=== PATIENT | male | born 1970 | race African-American/Black ===

== ENCOUNTER 2018-09-20 11:05 | Emergency (ER) | payer SELFPAY ==
[2012-05-13 06:10] VITALS: BP 129/68
--- NOTE | 2018-09-20 11:32 | EDPHYS ---
Physician Documentation [facility] Name: Andrew Vargas Age: 47 yrs Sex: Male : 1970 Arrival Date: 09/20/2018 Time: 11:08 Bed 15 Private MD: ED Physician Josep Abad HPI: 09/20 11:17 This 47 yrs old Black Male presents to ER via Ambulatory with complaints of Back Pain. jmm 11:17 The patient presents with pain that is acute. Onset: The symptoms/episode jmm began/occurred gradually, 1 week(s) ago. The pain does not radiate. Associated signs and symptoms: Pertinent negatives: abdominal pain, dysuria, fever, hematuria, incontinence, numbness, tingling, urinary retention. This is a 47 year old male with a history of htn, that presents to the ED with left lower back pain worsened with movement beginning approx 1 week ago. Patient denies nause, vomiting, abdominal pain, fever, hematuria, numbness, urnary complaints, fecal incontinence.. Historical: - Allergies: 11:15 No Known Allergies; sg - PMHx: 11:15 Hypertension; sg - PSHx: 11:15 COLON RESECTION; sg - Immunization history:: Adult Immunizations not up to date. - Social history:: Smoking status: Patient uses tobacco products, denies chronic smoking, but will smoke occasionally. - Ebola Screening: : Patient negative for fever greater than or equal to 101.5 degrees Fahrenheit, and additional compatible Ebola Virus Disease symptoms Patient denies exposure to infectious person Patient denies travel to an Ebola-affected area in the 21 days before illness onset No symptoms or risks identified at this time. ROS: 11:17 Constitutional: Negative for fever, chills, and weight loss, Eyes: Negative for injury, jmm pain, redness, and discharge, Cardiovascular: Negative for chest pain, palpitations, and edema, Respiratory: Negative for shortness of breath, cough, wheezing, and pleuritic chest pain, Abdomen/GI: Negative for abdominal pain, nausea, vomiting, diarrhea, and constipation. 11:17 Back: Positive for pain with movement. 11:17 All other systems are negative. Exam: 11:17 Constitutional: This is a well developed, well nourished patient who is awake, alert, jmm and in no acute distress. Head/Face: atraumatic. Eyes: EOMI, no conjunctival erythema appreciated ENT: Moist Mucus Membranes Neck: Trachea midline, Supple Chest/axilla: Normal chest wall appearance and motion. Cardiovascular: Regular rate and rhythm. No edema appreciated Respiratory: Normal respirations, no respiratory distress appreciated Abdomen/GI: Non distended, soft 11:17 Back: pain, that is mild, of the left low back, ROM is painful, CVA tenderness, is absent, vertebral tenderness, is not appreciated, muscle spasm, is appreciated in the left low back. 11:17 Musculoskeletal/extremity: ROM: intact in all extremities. 11:17 Skin: Appearance: Color: normal in color. 11:17 Neuro: Orientation: is normal, Mentation: is normal, Memory: is normal, Gait: is steady. 11:17 Psych: Behavior/mood is pleasant, cooperative. Vital Signs: 11:14 BP 146 / 92; Pulse 78; Resp 17; Temp 97.8; Pulse Ox 100% on R/A; Weight 81.65 kg (R); sg Height 5 ft. 9 in. (175.26 cm); Pain 4/10; 11:51 BP 127 / 83; Pulse 74; Resp 16; Pulse Ox 97% on R/A; rb1 11:14 Body Mass Index 26.58 (81.65 kg, 175.26 cm) sg MDM: 11:16 Patient medically screened. [facility] 11:28 Differential diagnosis: muscle spasm, lumbar sprain, calculus of ureter. Data reviewed: [facility] vital signs, nurses notes. Counseling: I had a detailed discussion with the patient and/or guardian regarding: the historical points, exam findings, and any diagnostic results supporting the discharge/admit diagnosis. Counseling: I had a detailed discussion with the patient and/or guardian regarding: lab results, the need for outpatient follow up, to return to the emergency department if symptoms worsen or persist or if there are any questions or concerns that arise at home. ED course: Patient's UA negative. Symptoms appear musculoskeletal. Patient is alert and non toxic in appearance in the ED. Neuro exam normal. I do not suspect cord compression. Patient is advised to follow up with PCP or return to the ED if symptoms worsen. . 09/20 11:29 Order name: Urine Dipstick--Ancillary (enter results); Complete Time: 21:42 eb 09/20 11:17 Order name: Urine Dipstick-Ancillary (obtain specimen); Complete Time: 11:31 patrick Administered Medications: No medications were administered Disposition: 15:14 Co-signature as Attending Physician, Josep Abad MD. rn Disposition: 09/20/18 11:32 Discharged to Home. Impression: Muscle spasm of back. - Condition is Stable. - Discharge Instructions: Muscle Cramps and Spasms, Back Injury Prevention, [id number]. - Prescriptions for Ibuprofen 800 mg Oral Tablet - take 1 tablet by ORAL route every 12 hours As needed take with food; 20 tablet. orphenadrine citrate 100 mg Oral Tablet Sustained Release - take 1 tablet by ORAL route 2 times per day As needed; 20 tablet. - Medication Reconciliation Form, Thank You Letter, Antibiotic Education, Prescription Opioid Use, Work release form form. - Follow up: Private Physician; When: 2 - 3 days; Reason: Recheck today's complaints, Continuance of care, Re-evaluation by your physician. Signatures: Dispatcher [employer] EDAshok Leyva RN RN Ba Demarco PA PA jmm Nieto, Roman, MD MD rn Barber, Rebecca, RN RN rb1 Corrections: (The following items were deleted from the chart) 11:54 11:32 09/20/2018 11:32 Discharged to Home. Impression: Muscle spasm of back. Condition rb1 is Stable. Forms are Medication Reconciliation Form, Thank You Letter, Antibiotic Education, Prescription Opioid Use. Follow up: Private Physician; When: 2 - 3 days; Reason: Recheck today's complaints, Continuance of care, Re-evaluation by your physician. patrick
--- NOTE | 2018-09-20 11:32 | ER ---
Nurse's Notes [facility] Name: Andrew Vargas Age: 47 yrs Sex: Male : 1970 Arrival Date: 09/20/2018 Time: 11:08 Bed 15 Private MD: Diagnosis: Muscle spasm of back Presentation: 09/20 11:13 Presenting complaint: Patient states: L sided low back pain that started about a week sg ago, denies N/V/D/Fever, denies any urinary problems at this time. Transition of care: patient was not received from another setting of care. Onset of symptoms was September 20, 2018. Risk Assessment: Do you want to hurt yourself or someone else? Patient reports no desire to harm self or others. Initial Sepsis Screen: Does the patient meet any 2 criteria? No. Patient's initial sepsis screen is negative. Does the patient have a suspected source of infection? No. Patient's initial sepsis screen is negative. Care prior to arrival: None. 11:13 Method Of Arrival: Ambulatory sg 11:13 Acuity: NIKITA 4 sg Historical: - Allergies: 11:15 No Known Allergies; sg - PMHx: 11:15 Hypertension; sg - PSHx: 11:15 COLON RESECTION; sg - Immunization history:: Adult Immunizations not up to date. - Social history:: Smoking status: Patient uses tobacco products, denies chronic smoking, but will smoke occasionally. - Ebola Screening: : Patient negative for fever greater than or equal to 101.5 degrees Fahrenheit, and additional compatible Ebola Virus Disease symptoms Patient denies exposure to infectious person Patient denies travel to an Ebola-affected area in the 21 days before illness onset No symptoms or risks identified at this time. Screenin:10 Abuse screen: Denies threats or abuse. Nutritional screening: No deficits noted. rb1 Tuberculosis screening: No symptoms or risk factors identified. Fall Risk None identified. Assessment: 11:10 General: Appears in no apparent distress. comfortable, Behavior is calm, cooperative. rb1 Pain: Complains of pain in left low back Pain radiates to right low back Pain currently is 8 out of 10 on a pain scale. Pain began about a week ago. Neuro: Level of Consciousness is awake, alert, obeys commands, Oriented to person, place, time, situation. Cardiovascular: Capillary refill < 3 seconds is brisk in bilateral fingers. Respiratory: Airway is patent Respiratory effort is even, unlabored, Respiratory pattern is regular, symmetrical. GI: No signs and/or symptoms were reported involving the gastrointestinal system. : No signs and/or symptoms were reported regarding the genitourinary system. Derm: Skin is dry, Skin is normal, Skin temperature is warm. Musculoskeletal: Range of motion: intact in all extremities. 11:37 Reassessment: Pt. would like to speak with the provider before being discharged. rb1 11:51 Reassessment: Patient appears in no apparent distress at this time. No changes from rb1 previously documented assessment. Vital Signs: 11:14 BP 146 / 92; Pulse 78; Resp 17; Temp 97.8; Pulse Ox 100% on R/A; Weight 81.65 kg (R); sg Height 5 ft. 9 in. (175.26 cm); Pain 4/10; 11:51 BP 127 / 83; Pulse 74; Resp 16; Pulse Ox 97% on R/A; rb1 11:14 Body Mass Index 26.58 (81.65 kg, 175.26 cm) ED Course: 11:08 Patient arrived in ED. as 11:09 Ba Guerrier PA is PHCP. [facility] 11:09 Josep Abad MD is Attending Physician. [facility] 11:10 Patient has correct armband on for positive identification. Bed in low position. Call rb1 light in reach. Side rails up X 1. Pulse ox on. NIBP on. 11:11 Sandra Schmitt, RN is Primary Nurse. rb1 11:14 Triage completed. sg 11:15 Arm band placed on. sg 11:53 No provider procedures requiring assistance completed. Patient did not have IV access rb1 during this emergency room visit. Administered Medications: No medications were administered Outcome: 11:32 Discharge ordered by . [facility] 11:53 Discharged to home ambulatory. rb1 11:53 Condition: stable 11:53 Discharge instructions given to patient, Instructed on discharge instructions, follow up and referral plans. medication usage, Demonstrated understanding of instructions, follow-up care, medications, Prescriptions given X 2. 11:54 Patient left the ED. rb1 Signatures: Ashok Dhillon, RN RN Ba Guerrier PA PA Viri Giraldo as Sandra Schmitt, RN RN [facility]
[2018-09-20 11:52] LABS: Urine Blood NEGATIVE (NEG); Urine Glucose NEGATIVE (NEG); Urine Protein NEGATIVE (NEG)
== END 2018-09-20 11:54 | disposition home or self-care (01) ==
LOC: ER 11:05
DX: M62.830 Muscle spasm of back (principal); I10 Essential (primary) hypertension; Z72.0 Tobacco use
CPT/HCPCS: 81003; 99283

== ENCOUNTER 2018-10-16 17:36 | Day surgery (SDC) | payer SELFPAY ==
[2018-10-16] MEDS ORDERED: TETANUS & DIPHTHERIA TOX,ADULT 0.5 ML VIAL ONE (18:17)
[2018-10-16] MEDS ORDERED: LIDOCAINE 1% MPF 5 ML VIAL ONE (18:20)
[2018-10-16] MEDS ORDERED: BUPIVACAINE 0.5% PF 10 ML VIAL ONE (18:20)
--- NOTE | 2018-10-16 18:44 | RAD REPORT ---
EXAM DESCRIPTION: RAD - Forearm Right - 10/16/2018 6:36 pm CLINICAL HISTORY: laceration COMPARISON: No comparisons FINDINGS: Soft tissue laceration is present involving the forearm. No fracture or radiopaque foreign body.
--- NOTE | 2018-10-16 21:23 | ER ---
Nurse's Notes [facility] Name: Andrew Vargas Age: 47 yrs Sex: Male : 1970 Arrival Date: 10/16/2018 Time: 17:38 Bed 20 Private MD: Diagnosis: Puncture wound without foreign body of right forearm;Compartment syndrome, unspecified Presentation: 10/16 17:39 Presenting complaint: EMS states: pt was washing dishes when he accidentally slipped hj and fell and a kitchen knife lacerated his R forearm; PD able to provide tourniquet on R upper arm at 1710, EMS came and provided dressing on R forearm; unknown if arterial or venous;. Transition of care: patient was not received from another setting of care. Complicating Factors: There are no complicating factors for this patient. Onset of symptoms was October 16, 2018. Risk Assessment: Do you want to hurt yourself or someone else? Patient reports no desire to harm self or others. Initial Sepsis Screen: Does the patient meet any 2 criteria? No. Patient's initial sepsis screen is negative. Does the patient have a suspected source of infection? No. Patient's initial sepsis screen is negative. Care prior to arrival: None. 17:39 Method Of Arrival: EMS: [facility] 17:39 Acuity: NIKITA 4 hj Triage Assessment: 17:44 General: Appears in no apparent distress. uncomfortable, Behavior is cooperative, hj appropriate for age, anxious. Pain: Complains of pain in right arm. Injury Description: Laceration sustained to right arm. Historical: - Allergies: 17:43 No Known Allergies; hj - Home Meds: 17:43 None [Active]; hj - PMHx: 17:43 Hypertension; hj - PSHx: 17:43 None; hj - Immunization history:: Adult Immunizations unknown. - Social history:: Smoking status: Patient uses tobacco products, Patient/guardian denies using alcohol, Patient uses coccaine. - Ebola Screening: : Patient negative for fever greater than or equal to 101.5 degrees Fahrenheit, and additional compatible Ebola Virus Disease symptoms Patient denies exposure to infectious person Patient denies travel to an Ebola-affected area in the 21 days before illness onset. Screenin:44 Abuse screen: Denies threats or abuse. Denies injuries from another. Nutritional hj screening: No deficits noted. Tuberculosis screening: No symptoms or risk factors identified. Fall Risk None identified. Assessment: 17:44 Musculoskeletal: No signs and/or symptoms reported regarding the musculoskeletal hj system. Injury Description: Laceration sustained to right arm is 2.6 to 7.5 cm long. 19:15 Reassessment: Patient appears in no apparent distress at this time. Patient and/or cc3 family updated on plan of care and expected duration. Pain level reassessed. Patient is alert, oriented x 3, equal unlabored respirations, skin warm/dry/pink. Received this male patient from morning shift BRUNILDA Daniel as a case of laceration to right forearm. With IV cannula gauge 18 at the left ACV saline locked. 20:20 Reassessment: Patient appears in no apparent distress at this time. Patient and/or cc3 family updated on plan of care and expected duration. Pain level reassessed. Patient is alert, oriented x 3, equal unlabored respirations, skin warm/dry/pink. 21:15 Reassessment: Patient appears in no apparent distress at this time. Patient and/or cc3 family updated on plan of care and expected duration. Pain level reassessed. Patient is alert, oriented x 3, equal unlabored respirations, skin warm/dry/pink. Ortho Dr. Morrissey assessing the patient at bedside. Patient for admission to OR. 22:10 Reassessment: Patient appears in no apparent distress at this time. Patient and/or cc3 family updated on plan of care and expected duration. Pain level reassessed. Patient is alert, oriented x 3, equal unlabored respirations, skin warm/dry/pink. ROVING TESTER LABORATORYBRUNILDA Ellis came and report given to her for continuity of care. Patient left ER for OR admission vitally stable by wheelchair escorted by BRUNILDA Ellis. Vital Signs: 17:45 BP 147 / 94; Pulse 73; Resp 18; Temp 98.2(O); Pulse Ox 100% on R/A; Weight 83.91 kg; hj Height 5 ft. 9 in. (175.26 cm); Pain 8/10; 19:30 BP 149 / 93; Pulse 65; Resp 18 S; Temp 98.2(O); Pulse Ox 100% on R/A; cc3 20:15 BP 155 / 85; Pulse 63; Resp 17 S; Pulse Ox 100% on R/A; cc3 21:39 BP 152 / 87; Pulse 64; Resp 16 S; Pulse Ox 100% on R/A; cc3 22:00 BP 157 / 90; Pulse 61; Resp 18 S; Pulse Ox 100% on R/A; cc3 17:45 Body Mass Index 27.32 (83.91 kg, 175.26 cm) ED Course: 17:38 Patient arrived in ED. hj 17:41 Ion Eckert NP is PHCP. pm1 17:41 Abebe Dodson MD is Attending Physician. pm1 17:42 Triage completed. hj 17:44 Arm band placed on right wrist. hj 17:45 Patient has correct armband on for positive identification. Bed in low position. Call hj light in reach. Side rails up X 1. 17:48 Fredy Isidro RN is Primary Nurse. hj 18:36 Forearm Right XRAY In Process Unspecified. EDMS 21:29 Checo Morrissey MD is Hospitalizing Provider. pm1 22:10 No provider procedures requiring assistance completed. Patient admitted, IV remains in cc3 place. Administered Medications: 18:47 Drug: Tetanus-Diphtheria Toxoid Adult 0.5 ml {Senior Medical Writer: [employer]. Exp: pc1 09/13/2020. Lot #: [id number]. } Route: IM; Site: left deltoid; 18:52 Follow up: Response: No adverse reaction hj 18:53 Drug: Lidocaine (1 %) 5 ml Volume: 5 ml; Route: Infiltration; hj 18:53 Drug: Bupivacaine (0.5 %) 10 ml Volume: 10 ml; Route: Infiltration; hj 21:45 Drug: Ancef 1 grams Route: IVPB; Site: left antecubital; cc3 22:10 Follow up: Response: No adverse reaction; IV Status: Completed infusion; IV Intake: [id number] Intake: 22:10 IV: 50ml; Total: 50ml. cc3 Outcome: 21:22 ER care complete, transfer ordered by . pm1 21:30 Decision to Hospitalize by Provider. pm1 22:10 Admitted to OR accompanied by nurse, via stretcher, with chart, Report called to OR cc3 nurse Ellis 22:10 Condition: stable 22:10 Instructed on the need for admit, Demonstrated understanding of instructions. 22:11 Patient left the ED. cc3 Signatures: Dispatcher [employer] Fredy Angelo, RN RN hj Ion Eckert, [employer] C[employer] T[employer] pm1 Marjorie Blackburn cc3 Ion Noble pc1
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
[2018-10-16] MEDS ORDERED: CEFAZOLIN SODIUM 1 GM/VIAL ONE (21:40)
[2018-10-16] MEDS ORDERED: NA CHLORIDE 0.9% 50 ML IV ONE (21:40)
[2018-10-16 21:42] LABS: Absolute Lymphocytes (CBC) 2.3 K/uL (0.7-4.9); Absolute Monocytes 0.9 K/uL (0.1-1.3); Absolute Neutrophil 4.9 K/uL (1.8-8.0); Basophils % 0.6 % (0-1.3); Eosinophils % 0.7 % (0-4.4); Lymphocytes % 28.3 % (15.3-44.8); Monocytes % 10.6 % (3.3-12.3); RBC Red Blood Cell Count 4.82 M/uL (4.33-5.43)
[2018-10-16 22:07] LABS: BUN Blood Urea Nitrogen 11 mg/dL (7-18); Bicarbonate 23 mmol/L (21-32); Glucose Level 76 mg/dL (74-106); Potassium 4.2 mmol/L (3.5-5.1); Sodium Level 139 mmol/L (136-145)
[2018-10-16] MEDS ORDERED: Ringers Lactate 1,000 ML IV ONE ×2 (22:23→23:47)
[2018-10-16] MEDS ORDERED: SUCCINYLCHOLINE 20 MG/ML (10 ML) IV ONE (22:35)
[2018-10-16] MEDS ORDERED: PROPOFOL 200 MG/20 ML VIAL IV ONE (22:40)
[2018-10-16] MEDS ORDERED: MIDAZOLAM HCL 2 MG/2 ML INJ ONE (22:40)
[2018-10-16] MEDS ORDERED: FENTANYL CITR 250 MCG/5 ML ONE (22:40)
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
[2018-10-17 00:26] VITALS: O2SAT 100
[2018-10-17 00:44] VITALS: BP 159/86; TEMP 97.7
[2018-10-17] MEDS ORDERED: MEPERIDINE HCL 25 MG/0.5 ML ONE (00:53)
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
== END 2018-10-17 00:58 | disposition short-term general hospital (02) ==
LOC: ER 17:36 → OR 22:11 → UNDOADMOB 22:33 → 2ND 22:33 → OR 10-17 00:58
PROVIDERS: ATTEND Orthopaedic Surgery
PROC: 0KN90ZZ Release Right Lower Arm and Wrist Muscle, Open Approach (ICD-10-PCS; principal; 2018-10-17)
PROC: 01D Peripheral Nervous System, Extraction (ICD-10-PCS; 2018-10-17)
DX: T79.A11A Traumatic compartment syndrome of right upper extremity, initial encounter (principal); S55.011A Laceration of ulnar artery at forearm level, right arm, initial encounter; S56.221A Laceration of other flexor muscle, fascia and tendon at forearm level, right arm, initial encounter; W26.0XXA Contact with knife, initial encounter; I10 Essential (primary) hypertension; Z23 Encounter for immunization; F17.200 Nicotine dependence, unspecified, uncomplicated
CPT/HCPCS: 36415; 80048; 85025; 86850; 86900; 86901; 90714; 96365; 99285; J0330; J0690; J2175; J2250; J2704; J3010

== ENCOUNTER 2018-10-27 13:04 | Emergency (ER) | payer SELFPAY ==
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
[2018-10-27] MEDS ORDERED: CLINDAMYCIN HCL 150 MG CAP ONE (14:53)
[2018-10-27 16:34] VITALS: TEMP 97.7
[2018-10-27 16:36] VITALS: BP 147/82; O2SAT 99
== END 2018-10-27 15:02 | disposition home or self-care (01) ==
LOC: ER 13:04
DX: R22.31 Localized swelling, mass and lump, right upper limb (principal); I10 Essential (primary) hypertension; F17.210 Nicotine dependence, cigarettes, uncomplicated
CPT/HCPCS: 99283

== ENCOUNTER 2019-10-20 16:53 | Emergency (ER) | payer SELFPAY ==
[2019-10-20] MEDS ORDERED: KETOROLAC 30 MG/ML INJ ONE (17:43)
[2019-10-20 18:05] LABS: Basophils % 0.9 % (0-1.3); MPV 8.1 fL (7.6-11.3); RBC Red Blood Cell Count 4.81 M/uL (4.33-5.43)
[2019-10-20 18:29] LABS: ALT/SGPT 24 U/L (12-78); AST/SGOT 18 U/L (15-37); Albumin 3.1 g/dL (3.4-5.0); Alkaline Phosphatase 100 U/L (45-117); BUN Blood Urea Nitrogen 11 mg/dL (7-18); Bicarbonate 26 mmol/L (21-32); Bilirubin Direct < 0.1 mg/dL (0-0.2); Bilirubin Total 0.2 mg/dL (0.2-1.0); Glucose Level 170 mg/dL (74-106); Lipase 235 U/L (73-393); Potassium 3.8 mmol/L (3.5-5.1); Sodium Level 141 mmol/L (136-145)
[2019-10-20] MEDS ORDERED: MEPERIDINE HCL 25 MG/ML SYR ONE (20:15)
[2019-10-20 23:00] LABS: Urine Blood NEGATIVE (NEG); Urine Glucose NEGATIVE (NEG); Urine Protein NEGATIVE (NEG); Urine pH 5.5 (5.0-7.0)
--- NOTE | 2019-10-20 23:34 | EDPHYS ---
Physician Documentation [facility] Name: Andrew Vargas Age: 49 yrs Sex: Male : 1970 Arrival Date: 10/20/2019 Time: 16:55 Bed 26 Private MD: ED Physician Josep Abad HPI: 10/20 17:28 This 49 yrs old Black Male presents to ER via Ambulatory with complaints of Low Back kdr Pain, Flank Pain. 17:28 The patient presents with pain that is acute, with no known mechanism of injury. kdr 17:28 The patient presents with abdominal pain right lower quadrant. Onset: The kdr symptoms/episode began/occurred gradually, Saturday. The symptoms do not radiate. Associated signs and symptoms: none. The symptoms are described as achy, dull, vague. Modifying factors: The symptoms are alleviated by Laying on his left side at a 45 degree angle. the symptoms are aggravated by movement, walking. Severity of pain: At its worst the pain was mild moderate just prior to arrival, in the emergency department the pain is unchanged. The patient has not experienced similar symptoms in the past. The patient has not recently seen a physician. The patient has dull, achy annoying pain with movement and then no pain in certain recumbent positions. Historical: - Allergies: 17:05 No Known Allergies; sv - PMHx: 17:05 Hypertension; sv - PSHx: 17:05 None; sv - Immunization history:: Adult Immunizations up to date. - Coronavirus screen:: The patient has NOT traveled to [place] in the past 14 days. Proceed with normal triage process as indicated. The patient has NOT had contact with known/suspected case of Coronavirus? Proceed with normal triage procedures. - Social history:: Smoking status: Patient reports the use of cigarette tobacco products, smokes one-half pack cigarettes per day. - Ebola Screening: : No symptoms or risks identified at this time. ROS: 17:28 Constitutional: Negative for fever, chills, and weight loss, Eyes: Negative for injury, kdr pain, redness, and discharge, ENT: Negative for injury, pain, and discharge, Neck: Negative for injury, pain, and swelling, Cardiovascular: Negative for chest pain, palpitations, and edema, Respiratory: Negative for shortness of breath, cough, wheezing, and pleuritic chest pain, Back: Negative for injury and pain, : Negative for injury, bleeding, discharge, and swelling, MS/Extremity: Negative for injury and deformity, Skin: Negative for injury, rash, and discoloration, Neuro: Negative for headache, weakness, numbness, tingling, and seizure activity. Psych: Negative for depression, anxiety, suicide ideation, homicidal ideation, and hallucinations, Allergy/Immunology: Negative for hives, rash, and allergies, Endocrine: Negative for neck swelling, polydipsia, polyuria, polyphagia, and marked weight changes, Hematologic/Lymphatic: Negative for swollen nodes, abnormal bleeding, and unusual bruising. 17:28 Abdomen/GI: Positive for abdominal pain, Negative for nausea, vomiting, and diarrhea, abdominal cramps, abdominal distension, anorexia, black/tarry stool, rectal pain, rectal bleeding. Exam: 17:28 Constitutional: This is a well developed, well nourished patient who is awake, alert, kdr and in no acute distress. Head/Face: Normocephalic, atraumatic. Eyes: Pupils equal round and reactive to light, extra-ocular motions intact. Lids and lashes normal. Conjunctiva and sclera are non-icteric and not injected. Cornea within normal limits. Periorbital areas with no swelling, redness, or edema. Neck: Trachea midline, no thyromegaly or masses palpated, and no cervical lymphadenopathy. Supple, full range of motion without nuchal rigidity, or vertebral point tenderness. No Meningismus. Chest/axilla: Normal chest wall appearance and motion. Nontender with no deformity. No lesions are appreciated. Cardiovascular: Regular rate and rhythm with a normal S1 and S2. No gallops, murmurs, or rubs. Normal PMI, no JVD. No pulse deficits. Respiratory: Lungs have equal breath sounds bilaterally, clear to auscultation and percussion. No rales, rhonchi or wheezes noted. No increased work of breathing, no retractions or nasal flaring. Back: No spinal tenderness. No costovertebral tenderness. Full range of motion. Skin: Warm, dry with normal turgor. Normal color with no rashes, no lesions, and no evidence of cellulitis. MS/ Extremity: Pulses equal, no cyanosis. Neurovascular intact. Full, normal range of motion. Neuro: Awake and alert, GCS 15, oriented to person, place, time, and situation. Cranial nerves II-XII grossly intact. Motor strength 5/5 in all extremities. Sensory grossly intact. Cerebellar exam normal. Normal gait. Psych: Awake, alert, with orientation to person, place and time. Behavior, mood, and affect are within normal limits. 17:28 Abdomen/GI: Inspection: abdomen appears normal, Bowel sounds: normal, Palpation: abdomen is soft and non-tender, soft, in the anterior aspect of right lateral abdomen and posterior aspect of right lateral abdomen, mass, is not appreciated, rebound tenderness, is not appreciated. Vital Signs: 17:06 BP 129 / 86; Pulse 92; Resp 18; Temp 98.8; Pulse Ox 97% ; Weight 83.91 kg; Height 5 ft. sv 9 in. (175.26 cm); Pain 8/10; 18:00 BP 117 / 71; Pulse 74; Resp 15 S; Pulse Ox 99% on R/A; ca1 19:12 BP 112 / 68; Pulse 67; Resp 18 S; Pulse Ox 99% ; ca1 20:13 BP 112 / 73; Pulse 61; Resp 14 S; Pulse Ox 100% on R/A; ca1 17:06 Body Mass Index 27.32 (83.91 kg, 175.26 cm) sv MDM: 19:08 Patient medically screened. rn 19:58 Differential diagnosis: Ureterolithiasis, urinary tract infection, back strain, muscle rn spasm, radiculopathy. Data reviewed: vital signs, nurses notes. Counseling: I had a detailed discussion with the patient and/or guardian regarding: the historical points, exam findings, and any diagnostic results supporting the discharge/admit diagnosis, the need for outpatient follow up, to return to the emergency department if symptoms worsen or persist or if there are any questions or concerns that arise at home. Response to treatment: the patient's symptoms have mildly improved after treatment, and as a result, I will discharge patient. ED course: Most likely muscle spasm, radiculopathy, strain given absence of injury, no abd pain, no urinary symptoms, no fever. Urine neg for acute findings. . 10/20 17:22 Order name: Basic Metabolic Panel [facility] 10/20 17:22 Order name: CBC with Diff [facility] 10/20 17:22 Order name: Creatinine for Radiology [facility] 10/20 16: Order name: Hepatic Function [facility] 10/20 17:22 Order name: Lipase [facility] 10/20 17:28 Order name: Urine Dipstick--Ancillary (enter results) 10/20 17:22 Order name: IV Saline Lock; Complete Time: 17:46 [facility] 10/20 17:22 Order name: Labs collected and sent; Complete Time: 17:46 [facility] 10/20 17:22 Order name: Urine Dipstick-Ancillary (obtain specimen); Complete Time: 17:25 [facility] Administered Medications: 17:46 Drug: TORadol - Ketorolac 15 mg Route: IVP; Site: left antecubital; ca1 19:30 Follow up: Response: No adverse reaction; Pain is decreased ca1 20:12 Drug: Demerol 25 mg {Note: RASS - 0.} Route: IVP; Site: left antecubital; ca1 20:34 Follow up: Response: No adverse reaction; Pain is decreased; RASS: Alert and Calm (0) ca1 Disposition: 10/20/19 20:16 Discharged to Home. Impression: Muscle spasm of back. - Condition is Stable. - Discharge Instructions: Muscle Cramps and Spasms, Back Injury Prevention, [id number], Back Exercises, [id number]. - Prescriptions for Cyclobenzaprine 10 mg Oral Tablet - take 1 tablet by ORAL route every 8 hours As needed; 20 tablet. Tramadol 50 mg Oral Tablet - take 1 tablet by ORAL route every 8 hours as needed; 20 tablet. Medrol (Vidal) 4 mg Oral Tablets, Dose Pack - take 1 tablet by ORAL route as directed - follow package instructions; 1 packet. - Medication Reconciliation Form, Thank You Letter, Antibiotic Education, Prescription Opioid Use form. - Follow up: Private Physician; When: As needed; Reason: Recheck today's complaints, Re-evaluation by your physician. - Problem is new. - Symptoms have improved. Signatures: Dispatcher [employer] Rhonda Avendaño RN RN sv Rittger, Kevin, MD MD kdr Nieto, Roman, MD MD rn Aclubna, BRUNILDA Gonzalez RN ca1 Corrections: (The following items were deleted from the chart) 20:35 20:16 10/20/2019 20:16 Discharged to Home. Impression: Muscle spasm of back. Condition ca1 is Stable. Forms are Medication Reconciliation Form, Thank You Letter, Antibiotic Education, Prescription Opioid Use. Follow up: Private Physician; When: As needed; Reason: Recheck today's complaints, Re-evaluation by your physician. Problem is new. Symptoms have improved. rn
--- NOTE | 2019-10-20 23:34 | ER ---
Nurse's Notes [facility] Name: Andrew Vargas Age: 49 yrs Sex: Male : 1970 Arrival Date: 10/20/2019 Time: 16:55 Bed 26 Private MD: Diagnosis: Muscle spasm of back Presentation: 10/20 17:04 Presenting complaint: Patient states: right flank pain x 2 days. Denies urinary sv symptoms. Transition of care: patient was not received from another setting of care. Onset of symptoms was October 18, 2019. Care prior to arrival: None. 17:04 Method Of Arrival: Ambulatory sv 17:04 Acuity: NIKITA 3 sv 17:15 Risk Assessment: Do you want to hurt yourself or someone else? Patient reports no ca1 desire to harm self or others. Initial Sepsis Screen: Does the patient meet any 2 criteria? No. Patient's initial sepsis screen is negative. Does the patient have a suspected source of infection? No. Patient's initial sepsis screen is negative. Triage Assessment: 17:06 General: Appears in no apparent distress. uncomfortable, Behavior is calm, cooperative, sv appropriate for age. Pain: Complains of pain in right low back. Neuro: Level of Consciousness is awake, alert, obeys commands, Gait is steady. Historical: - Allergies: 17:05 No Known Allergies; sv - PMHx: 17:05 Hypertension; sv - PSHx: 17:05 None; sv - Immunization history:: Adult Immunizations up to date. - Coronavirus screen:: The patient has NOT traveled to [place] in the past 14 days. Proceed with normal triage process as indicated. The patient has NOT had contact with known/suspected case of Coronavirus? Proceed with normal triage procedures. - Social history:: Smoking status: Patient reports the use of cigarette tobacco products, smokes one-half pack cigarettes per day. - Ebola Screening: : No symptoms or risks identified at this time. Screenin:15 Abuse screen: Denies threats or abuse. Denies injuries from another. Nutritional ca1 screening: No deficits noted. Tuberculosis screening: No symptoms or risk factors identified. Fall Risk IV access (20 points). Assessment: 17:15 General: Appears in no apparent distress. uncomfortable, Behavior is calm, cooperative, ca1 appropriate for age. Pain: Complains of pain in right low back Pain does not radiate. Pain currently is 8 out of 10 on a pain scale. Quality of pain is described as sharp, Pain began 2-3 days ago. Is intermittent, Aggravated by repositioning. Neuro: Level of Consciousness is awake, alert, obeys commands, Oriented to person, place, time, situation, Appropriate for age. Cardiovascular: Heart tones S1 S2 present Capillary refill < 3 seconds Patient's skin is warm and dry. Respiratory: Airway is patent Respiratory effort is even, unlabored, Respiratory pattern is regular, symmetrical, Breath sounds are clear bilaterally. GI: Abdomen is round non-distended, Bowel sounds present X 4 quads. Abd is soft and non tender X 4 quads. : Urine is clear, Denies burning with urination, urinary frequency, urgency. EENT: No deficits noted. No signs and/or symptoms were reported regarding the EENT system. Derm: Skin is intact, is healthy with good turgor, Skin is pink, warm \T\ dry. Musculoskeletal: Circulation, motion, and sensation intact. Capillary refill < 3 seconds, Range of motion: intact in all extremities. 18:14 Reassessment: Patient appears in no apparent distress at this time. Patient and/or ca1 family updated on plan of care and expected duration. Pain level reassessed. Patient is alert, oriented x 3, equal unlabored respirations, skin warm/dry/pink. 19:12 Reassessment: Patient appears in no apparent distress at this time. Patient and/or ca1 family updated on plan of care and expected duration. Pain level reassessed. Patient is alert, oriented x 3, equal unlabored respirations, skin warm/dry/pink. 20:13 Reassessment: Patient appears in no apparent distress at this time. Patient and/or ca1 family updated on plan of care and expected duration. Pain level reassessed. Patient is alert, oriented x 3, equal unlabored respirations, skin warm/dry/pink. Vital Signs: 17:06 BP 129 / 86; Pulse 92; Resp 18; Temp 98.8; Pulse Ox 97% ; Weight 83.91 kg; Height 5 ft. sv 9 in. (175.26 cm); Pain 8/10; 18:00 BP 117 / 71; Pulse 74; Resp 15 S; Pulse Ox 99% on R/A; ca1 19:12 BP 112 / 68; Pulse 67; Resp 18 S; Pulse Ox 99% ; ca1 20:13 BP 112 / 73; Pulse 61; Resp 14 S; Pulse Ox 100% on R/A; ca1 17:06 Body Mass Index 27.32 (83.91 kg, 175.26 cm) sv ED Course: 16:55 Patient arrived in ED. as 17:04 Arm band placed on. sv 17:05 Triage completed. sv 17:10 Lisa Venegas, RN is Primary Nurse. ca1 17:15 Patient has correct armband on for positive identification. Placed in gown. Bed in low ca1 position. Call light in reach. Side rails up X 1. Pulse ox on. NIBP on. Warm blanket given. 17:15 Urine collected: clean catch specimen, clear, Amount Voided: 70mL. ca1 17:21 Michoacano Mancini MD is Attending Physician. kdr 17:40 No provider procedures requiring assistance completed. Initial lab(s) drawn, by mi, ca1 sent to lab. Inserted saline lock: 20 gauge in left antecubital area, using aseptic technique. Blood collected. 19:08 Attending Physician role handed off by Michoacano Mancini MD rn 19:08 Josep Abad MD is Attending Physician. rn 20:34 IV discontinued, intact, bleeding controlled, No redness/swelling at site. Pressure ca1 dressing applied. Administered Medications: 17:46 Drug: TORadol - Ketorolac 15 mg Route: IVP; Site: left antecubital; ca1 19:30 Follow up: Response: No adverse reaction; Pain is decreased ca1 20:12 Drug: Demerol 25 mg {Note: RASS - 0.} Route: IVP; Site: left antecubital; ca1 20:34 Follow up: Response: No adverse reaction; Pain is decreased; RASS: Alert and Calm (0) ca1 Outcome: 20:16 Discharge ordered by . rn 20:35 Discharged to home ambulatory, with friend. ca1 20:35 Condition: stable 20:35 Discharge instructions given to patient, Instructed on discharge instructions, follow up and referral plans. no drinking with medication, no driving heavy equipment, medication usage, Demonstrated understanding of instructions, follow-up care, medications, Prescriptions given X 3. 20:35 Patient left the ED. ca1 Signatures: Rhonda Mccarthy RN RN Michoacano Mancini MD MD kdr Martinez, Amelia as Nieto Josep, MD MD rn Acob, BRUNILDA Gonzalez RN ca1 Corrections: (The following items were deleted from the chart) 17:06 17:06 Pulse 92bpm; Resp 18bpm; Pulse Ox 97%; Temp 98.8F; 83.91 kg; Height 5 ft. 9 in.; sv BMI: 27.3; Pain 8/10; sv 19:30 19:12 BP 132 / 68; Pulse 107bpm; Resp 18bpm; Spontaneous; Pulse Ox 99%; ca1 ca1
[2019-10-21 01:27] VITALS: BP 129/86; TEMP 98.8; O2SAT 97
== END 2019-10-20 20:35 | disposition home or self-care (01) ==
LOC: ER 16:53
DX: M62.830 Muscle spasm of back (principal); I10 Essential (primary) hypertension; F17.210 Nicotine dependence, cigarettes, uncomplicated
CPT/HCPCS: 36415; 80048; 80076; 81003; 83690; 85025; 96374; 96375; 99284; J2175

== ENCOUNTER 2022-02-05 09:22 | Emergency (ER) | payer SELFPAY ==
[2022-02-05 10:09] LABS: Urine Blood Negative (Negative); Urine Glucose Negative (Negative); Urine Protein Negative (Negative); Urine Specific Gravity >=1.030 (1.005-1.030); Urine pH 5.5 (5.0-7.0)
[2022-02-05] MEDS ORDERED: CEFTRIAXONE 500 MG/VIAL ONE (10:20)
[2022-02-05] MEDS ORDERED: WATER FOR INJ,STERILE 10 ML ONE (10:31)
[2022-02-05 11:07] LABS: Urine Bacteria <20 /HPF (NONE SEEN); Urine Mucus 1+ /HPF (NONE SEEN); Urine RBC <5 /HPF (NONE SEEN)
--- NOTE | 2022-02-05 11:11 | EDPHYS ---
Physician Documentation [facility] Name: Andrew Vargas Age: 51 yrs Sex: Male : 1970 Arrival Date: 02/05/2022 Time: 09:24 Bed 9 Private MD: ED Physician Josep Abad HPI: 02/05 09:57 This 51 yrs old Black Male presents to ER via Ambulatory with complaints of STD pm1 Exposure. 09:57 The patient presents with a known STD exposure, with a history of engaging in sex with pm1 a single partner, did not use protection, Informed by her that she tested positive for STD. Patient does not known which STD or what medications she started taking. Onset: The symptoms/episode began/occurred intercourse 1 week ago and told she exposed him to STD 2-3 days ago. Modifying factors: The symptoms are alleviated by nothing, the symptoms are aggravated by nothing. Associated signs and symptoms: Pertinent negatives: dysuria, fever. Severity of symptoms: in the emergency department the symptoms are unchanged. The patient has not experienced similar symptoms in the past. The patient has not recently seen a physician. Historical: - Allergies: 09:52 No Known Allergies; vg1 - Home Meds: 09:52 None [Active]; vg1 - PMHx: 09:52 Hypertension; vg1 - PSHx: 09:52 Bowel Obstruction; vg1 - Immunization history:: Client reports receiving the 2nd dose of the Covid vaccine. - Social history:: Smoking status: Patient reports the use of cigarette tobacco products, smokes one-half pack cigarettes per day. ROS: 09:57 Constitutional: Negative for fever, chills, and weight loss, Cardiovascular: Negative pm1 for chest pain, palpitations, and edema, Respiratory: Negative for shortness of breath, cough, wheezing, and pleuritic chest pain, Abdomen/GI: Negative for abdominal pain, nausea, vomiting, diarrhea, and constipation, Back: Negative for injury and pain, : Negative for injury, bleeding, discharge, and swelling, MS/Extremity: Negative for injury and deformity, Skin: Negative for injury, rash, and discoloration, Neuro: Negative for headache, weakness, numbness, tingling, and seizure. 09:57 All other systems are negative. Exam: 09:57 Constitutional: This is a well developed, well nourished patient who is awake, alert, pm1 and in no acute distress. Head/Face: Normocephalic, atraumatic. Cardiovascular: Regular rate and rhythm with a normal S1 and S2. No gallops, murmurs, or rubs. Normal PMI, no JVD. No pulse deficits. Respiratory: Lungs have equal breath sounds bilaterally, clear to auscultation and percussion. No rales, rhonchi or wheezes noted. No increased work of breathing, no retractions or nasal flaring. Abdomen/GI: Soft, non-tender, with normal bowel sounds. No distension or tympany. No guarding or rebound. No evidence of tenderness throughout. Back: No spinal tenderness. No costovertebral tenderness. Full range of motion. Skin: Warm, dry with normal turgor. Normal color with no rashes, no lesions, and no evidence of cellulitis. MS/ Extremity: Pulses equal, no cyanosis. Neurovascular intact. Full, normal range of motion. 09:57 Neuro: Exam negative for acute changes, Orientation: is normal, Mentation: is normal, Motor: is normal, moves all fours. Vital Signs: 09:49 BP 115 / 96; Pulse 62; Resp 16; Temp 98.0(O); Pulse Ox 100% on R/A; Weight 99.79 kg; vg1 Height 5 ft. 9 in. (175.26 cm); Pain 0/10; 09:49 Body Mass Index 32.49 (99.79 kg, 175.26 cm) vg1 MDM: 09:52 Patient medically screened. pm1 10:35 Data reviewed: vital signs. Data interpreted: Pulse oximetry: on room air is 100 %. pm1 Interpretation: normal. 11:09 Counseling: I had a detailed discussion with the patient and/or guardian regarding: the pm1 historical points, exam findings, and any diagnostic results supporting the discharge/admit diagnosis, lab results, the need for outpatient follow up, a family practitioner, STD clinic. HIV and Hepatitis test with them since not done here. 02/05 09:57 Order name: Urine Microscopic Only; Complete Time: 11:08 pm1 02/05 10:09 Order name: Urine Dipstick-Ancillary; Complete Time: 10:35 EDMS 02/05 09:57 Order name: Urine Dipstick-Ancillary (obtain specimen); Complete Time: 10:08 pm1 02/05 10:48 Order name: GC (Melchor/Chl) Probe URINE EDMS Administered Medications: 10:49 Drug: Rocephin (cefTRIAXone) 500 mg Route: IM; Site: left gluteus; ss 11:26 Follow up: Response: No adverse reaction ss Disposition: 19:04 Co-signature as Attending Physician, Josep Abad MD. rn Disposition Summary: 02/05/22 11:10 Discharge Ordered Location: Home pm1 Problem: new pm1 Symptoms: have improved pm1 Condition: Stable pm1 Diagnosis - Contact with and (suspected) exposure to infections with a predominantly sexual pm1 mode of transmission Followup: pm1 - With: Emergency Department - When: As needed - Reason: Worsening of condition Followup: pm1 - With: Private Physician - When: 2 - 3 days - Reason: Recheck today's complaints, Continuance of care, Re-evaluation by your physician Discharge Instructions: - Discharge Summary Sheet pm1 - Preventing Sexually Transmitted Infections, Adult pm1 Forms: - Medication Reconciliation Form pm1 - Thank You Letter pm1 - Antibiotic Education pm1 - Prescription Opioid Use pm1 Prescriptions: - Doxycycline Hyclate 100 mg Oral Tablet - take 1 tablet by ORAL route every 12 hours; 20 tablet; Refills: 0, Product pm1 Selection Permitted Signatures: Dispatcher [employer] EDMS Josep Abad MD MD rn Smirch, Shelby, RN RN ss Ion Eckert, NEO OUTPATIENT DIETITIAN pm1 Yarelis Huber RN RN vg1 Corrections: (The following items were deleted from the chart) 11:12 11:10 Other urethritis pm1 pm1
--- NOTE | 2022-02-05 11:11 | ER ---
Nurse's Notes [facility] Name: Andrew Vargas Age: 51 yrs Sex: Male : 1970 Arrival Date: 02/05/2022 Time: 09:24 Bed 9 Private MD: Diagnosis: Contact with and (suspected) exposure to infections with a predominantly sexual mode of transmission Presentation: 02/05 09:49 Chief complaint: Patient states: Pt was sexually active about a week ago and was told vg1 by the partner that they were exposed to an STD, but unsure of what disease it was. Pt denies penile discharge or swelling to groin. Coronavirus screen: Vaccine status: Patient reports receiving the 2nd dose of the covid vaccine. Client denies travel out of the [place] in the last 14 days. Ebola Screen: Patient denies exposure to infectious person. Patient denies travel to an Ebola-affected area in the 21 days before illness onset. Initial Sepsis Screen: Does the patient meet any 2 criteria? No. Patient's initial sepsis screen is negative. Does the patient have a suspected source of infection? No. Patient's initial sepsis screen is negative. Risk Assessment: Do you want to hurt yourself or someone else? Patient reports no desire to harm self or others. Onset of symptoms was January 31, 2022. 09:49 Method Of Arrival: Ambulatory vg1 09:49 Acuity: NIKITA 4 vg1 Triage Assessment: 09:52 General: Appears comfortable, Behavior is cooperative, anxious. Pain: Denies pain. : vg1 Denies burning with urination. Historical: - Allergies: 09:52 No Known Allergies; vg1 - Home Meds: 09:52 None [Active]; vg1 - PMHx: 09:52 Hypertension; vg1 - PSHx: 09:52 Bowel Obstruction; vg1 - Immunization history:: Client reports receiving the 2nd dose of the Covid vaccine. - Social history:: Smoking status: Patient reports the use of cigarette tobacco products, smokes one-half pack cigarettes per day. Screenin:15 Abuse screen: Denies threats or abuse. Denies injuries from another. Nutritional ss screening: No deficits noted. Tuberculosis screening: Never had TB. Fall Risk None identified. Assessment: 10:15 General: Appears in no apparent distress. comfortable, Behavior is calm, cooperative. ss Neuro: Isabel Agitation-Sedation Scale (RASS): 0 - Alert and Calm Level of Consciousness is awake, alert, obeys commands. Respiratory: Airway is patent Respiratory effort is even, unlabored, Respiratory pattern is regular, symmetrical. GI: No signs and/or symptoms were reported involving the gastrointestinal system. Derm: Skin is intact, is healthy with good turgor, Skin is dry, Skin is pink, warm \T\ dry. normal. 11:25 Reassessment: Patient appears in no apparent distress at this time. Patient is alert, ss oriented x 3, equal unlabored respirations, skin warm/dry/pink. Vital Signs: 09:49 BP 115 / 96; Pulse 62; Resp 16; Temp 98.0(O); Pulse Ox 100% on R/A; Weight 99.79 kg; vg1 Height 5 ft. 9 in. (175.26 cm); Pain 0/10; 09:49 Body Mass Index 32.49 (99.79 kg, 175.26 cm) vg1 ED Course: 09:24 Patient arrived in ED. rg4 09:47 Ion Eckert NP is PHCP. pm1 09:47 Josep Abad MD is Attending Physician. pm1 09:52 Triage completed. vg1 09:52 Arm band placed on. vg1 10:08 Slime Partida RN is Primary Nurse. ss 10:15 Patient has correct armband on for positive identification. Bed in low position. ss 10:15 Call light in reach. ss 11:25 No provider procedures requiring assistance completed. Patient did not have IV access ss during this emergency room visit. Administered Medications: 10:49 Drug: Rocephin (cefTRIAXone) 500 mg Route: IM; Site: left gluteus; ss 11:26 Follow up: Response: No adverse reaction ss Medication: 10:15 VIS not applicable for this client. ss Outcome: 11:10 Discharge ordered by . pm1 11:25 Discharged to home ambulatory. ss 11:25 Condition: good 11:25 Discharge instructions given to patient, Instructed on discharge instructions, follow up and referral plans. medication usage, Demonstrated understanding of instructions, follow-up care, medications, Prescriptions given X 1. 11:26 Patient left the ED. ss Signatures: Slime Partida RN RN Ion Eckert NP BORING MACHINE OPERATOR VERTICAL pm1 Vane Huber rg4 Yarelis Huber, RN RN vg1
[2022-02-05 11:38] VITALS: BP 115/96; TEMP 98; O2SAT 100
== END 2022-02-05 11:26 | disposition home or self-care (01) ==
LOC: ER 09:22
DX: Z20.2 Contact with and (suspected) exposure to infections with a predominantly sexual mode of transmission (principal); F17.210 Nicotine dependence, cigarettes, uncomplicated
CPT/HCPCS: 81003; 81015; 87490; 87590; 96372; 99283; J0696

== ENCOUNTER 2022-05-21 16:24 | Emergency (ER) | payer SELFPAY ==
[2012-05-13 06:10] VITALS: BP 129/68
--- NOTE | 2022-05-21 17:08 | EDPHYS ---
Physician Documentation [facility] Name: Andrew Vargas Age: 51 yrs Sex: Male : 1970 Arrival Date: 05/21/2022 Time: 16:26 Bed 9 Private MD: ED Physician Carlos Galloway HPI: 05/21 20:45 This 51 yrs old Black Male presents to ER via Ambulatory with complaints of Leg Pain. snw 20:45 The patient presents with decreased range of motion, pain, that is acute. The snw complaints affect the left hip. Context: The problem was sustained at home, resulted from an unknown cause, the patient can partially bear weight, the patient is able to ambulate, with mild difficulty, Problem is a result from a previous injury: No. Onset: The symptoms/episode began/occurred suddenly, last night. Associated signs and symptoms: The patient has no apparent associated signs or symptoms. Severity of symptoms: At their worst the symptoms were moderate. The patient has not experienced similar symptoms in the past. It is unknown whether or not the patient has recently seen a physician. Pt states he was sitting in [employer] and then his left hip began hurting so badly he didn't think he could walk. Pt states his hip hurts laterally and it feels like his knee may give out, denies back pain or any trauma. Historical: - Allergies: 16:44 No Known Allergies; bm7 - Home Meds: 16:44 None [Active]; bm7 - PMHx: 16:44 Hypertension; bm7 - PSHx: 16:44 bowel obstruction; bm7 - Immunization history:: Adult Immunizations up to date, Client reports receiving the 2nd dose of the Covid vaccine, Client reports receiving the 1st dose of the Covid vaccine. - Social history:: Smoking status: Patient reports the use of cigarette tobacco products, smokes one-half pack cigarettes per day. ROS: 20:44 Constitutional: Negative for fever, chills, and weight loss, Eyes: Negative for injury, snw pain, redness, and discharge, ENT: Negative for injury, pain, and discharge, Neck: Negative for injury, pain, and swelling, Cardiovascular: Negative for chest pain, palpitations, and edema, Respiratory: Negative for shortness of breath, cough, wheezing, and pleuritic chest pain, Abdomen/GI: Negative for abdominal pain, nausea, vomiting, diarrhea, and constipation, Back: Negative for injury and pain, : Negative for injury, bleeding, discharge, and swelling, Skin: Negative for injury, rash, and discoloration, Neuro: Negative for headache, weakness, numbness, tingling, and seizure, Psych: Negative for depression, anxiety, suicide ideation, homicidal ideation, and hallucinations. 20:44 MS/extremity: Positive for decreased range of motion, pain, of the left hip. Exam: 20:44 Constitutional: This is a well developed, well nourished patient who is awake, alert, snw and in no acute distress. Head/Face: Normocephalic, atraumatic. Eyes: Pupils equal round and reactive to light, extra-ocular motions intact. Lids and lashes normal. Conjunctiva and sclera are non-icteric and not injected. Cornea within normal limits. Periorbital areas with no swelling, redness, or edema. ENT: Nares patent. No nasal discharge, no septal abnormalities noted. Tympanic membranes are normal and external auditory canals are clear. Oropharynx with no redness, swelling, or masses, exudates, or evidence of obstruction, uvula midline. Mucous membranes moist. Neck: Trachea midline, no thyromegaly or masses palpated, and no cervical lymphadenopathy. Supple, full range of motion without nuchal rigidity, or vertebral point tenderness. No Meningismus. Chest/axilla: Normal chest wall appearance and motion. Nontender with no deformity. No lesions are appreciated. Cardiovascular: Regular rate and rhythm with a normal S1 and S2. No gallops, murmurs, or rubs. Normal PMI, no JVD. No pulse deficits. Respiratory: Lungs have equal breath sounds bilaterally, clear to auscultation and percussion. No rales, rhonchi or wheezes noted. No increased work of breathing, no retractions or nasal flaring. Abdomen/GI: Soft, non-tender, with normal bowel sounds. No distension or tympany. No guarding or rebound. No evidence of tenderness throughout. Back: No spinal tenderness. No costovertebral tenderness. Full range of motion. Skin: Warm, dry with normal turgor. Normal color with no rashes, no lesions, and no evidence of cellulitis. Neuro: Awake and alert, GCS 15, oriented to person, place, time, and situation. Cranial nerves II-XII grossly intact. Motor strength 5/5 in all extremities. Sensory grossly intact. Cerebellar exam normal. Normal gait. Psych: Awake, alert, with orientation to person, place and time. Behavior, mood, and affect are within normal limits. 20:44 Musculoskeletal/extremity: Extremities: grossly normal except: noted in the left hip: decreased ROM, tenderness. Vital Signs: 16:42 BP 131 / 77; Pulse 80; Resp 16; Temp 98.6(TE); Pulse Ox 99% on R/A; Weight 88.45 kg bm7 (R); Height 5 ft. 9 in. (175.26 cm); Pain 10/10; 16:42 Body Mass Index 28.80 (88.45 kg, 175.26 cm) bm7 MDM: 17:04 Patient medically screened. snw 20:43 Data reviewed: vital signs, nurses notes. Data interpreted: Pulse oximetry: on room air snw is 99 %. Interpretation: normal. Counseling: I had a detailed discussion with the patient and/or guardian regarding: the historical points, exam findings, and any diagnostic results supporting the discharge/admit diagnosis, the need for outpatient follow up, to return to the emergency department if symptoms worsen or persist or if there are any questions or concerns that arise at home. Special discussion: Based on the history and exam findings, there is no indication for further emergent testing or inpatient evaluation. I discussed with the patient/guardian the need to see the primary care provider for further evaluation of the symptoms. Administered Medications: 17:24 Drug: Decadron (dexamethasone) 10 mg Route: IM; Site: left deltoid; bm7 17:29 Follow up: Response: No adverse reaction bm7 Disposition: 05/22 08:41 Co-signature as Attending Physician, Carlos Galloway DO I was immediately available on-site ms3 in the Emergency Department for consultation in the care of the patient. . Disposition Summary: 05/21/22 17:08 Discharge Ordered Location: Home snw Condition: Stable snw Diagnosis - Other bursitis of hip, left hip snw Followup: snw - With: Emergency Department - When: As needed - Reason: Worsening of condition Followup: snw - With: Private Physician - When: 2 - 3 days - Reason: Recheck today's complaints, Continuance of care, Re-evaluation by your physician Discharge Instructions: - Discharge Summary Sheet snw - Hip Bursitis snw - Heat Therapy snw Forms: - Medication Reconciliation Form snw - Thank You Letter snw - Antibiotic Education snw - Prescription Opioid Use snw Prescriptions: - Prednisone 20 mg Oral Tablet - take 2 tablets by ORAL route once daily for 5 days; 10 tablet; Refills: 0, snw Product Selection Permitted - Pepcid 20 mg Oral Tablet - take 1 tablet by ORAL route once daily; 20 tablet; Refills: 0, Product snw Selection Permitted Signatures: Marbella Frederick, FLOOR COVERINGS SALESPERSON-C FLOOR COVERINGS SALESPERSON-Csnw Carlos Galloway DO DO ms3 Shona Nguyen, RN RN bm7
--- NOTE | 2022-05-21 17:08 | ER ---
Nurse's Notes [facility] Name: Andrew Vargas Age: 51 yrs Sex: Male : 1970 Arrival Date: 05/21/2022 Time: 16:26 Bed 9 Private MD: Diagnosis: Other bursitis of hip, left hip Presentation: 05/21 16:42 Chief complaint: Patient states: I woke up this morning with really bad pain that bm7 shoots down from my hip to my knee. I can hardly walk and I have been in the recliner all day. Coronavirus screen: At this time, the client does not indicate any symptoms associated with coronavirus-19. Ebola Screen: No symptoms or risks identified at this time. Initial Sepsis Screen: Does the patient meet any 2 criteria? No. Patient's initial sepsis screen is negative. Does the patient have a suspected source of infection? No. Patient's initial sepsis screen is negative. Risk Assessment: Do you want to hurt yourself or someone else? Patient reports no desire to harm self or others. Onset of symptoms was May 21, 2022. 16:42 Method Of Arrival: Ambulatory 7 16:42 Acuity: NIKITA 4 bm7 Triage Assessment: 16:44 General: Appears in no apparent distress. uncomfortable, Behavior is calm, cooperative, bm7 appropriate for age. Pain: Complains of pain in left leg. EENT: No deficits noted. No signs and/or symptoms were reported regarding the EENT system. Neuro: Reports numbness in left leg. Cardiovascular: No deficits noted. Respiratory: No deficits noted. GI: No deficits noted. No signs and/or symptoms were reported involving the gastrointestinal system. : No deficits noted. No signs and/or symptoms were reported regarding the genitourinary system. Derm: No deficits noted. No signs and/or symptoms reported regarding the dermatologic system. Musculoskeletal: Reports weakness in left leg numbness in left leg pain in left leg. Historical: - Allergies: 16:44 No Known Allergies; bm7 - Home Meds: 16:44 None [Active]; bm7 - PMHx: 16:44 Hypertension; bm7 - PSHx: 16:44 bowel obstruction; bm7 - Immunization history:: Adult Immunizations up to date, Client reports receiving the 2nd dose of the Covid vaccine, Client reports receiving the 1st dose of the Covid vaccine. - Social history:: Smoking status: Patient reports the use of cigarette tobacco products, smokes one-half pack cigarettes per day. Screenin:28 Abuse screen: Denies threats or abuse. Nutritional screening: No deficits noted. bm7 Tuberculosis screening: No symptoms or risk factors identified. Fall Risk None identified. Assessment: 17:28 Reassessment: No changes from previously documented assessment. bm7 Vital Signs: 16:42 BP 131 / 77; Pulse 80; Resp 16; Temp 98.6(TE); Pulse Ox 99% on R/A; Weight 88.45 kg bm7 (R); Height 5 ft. 9 in. (175.26 cm); Pain 10/10; 16:42 Body Mass Index 28.80 (88.45 kg, 175.26 cm) bm7 ED Course: 16:26 Patient arrived in ED. rg4 16:42 Shona Nguyen, BRUNILDA is Primary Nurse. bm7 16:44 Triage completed. bm7 16:44 Arm band placed on right wrist. bm7 16:46 Marbella Frederick F[facility]-C [facility]. snw 16:46 Carlos Galloway DO is Attending Physician. snw 17:28 Patient has correct armband on for positive identification. Call light in reach. bm7 17:28 No provider procedures requiring assistance completed. Patient did not have IV access bm7 during this emergency room visit. Administered Medications: 17:24 Drug: Decadron (dexamethasone) 10 mg Route: IM; Site: left deltoid; bm7 17:29 Follow up: Response: No adverse reaction bm7 Medication: 17:28 VIS not applicable for this client. bm7 Outcome: 17:08 Discharge ordered by . snw 17:28 Discharged to home ambulatory. bm7 17:28 Condition: good 17:28 Discharge instructions given to patient, Instructed on discharge instructions, follow up and referral plans. medication usage, Demonstrated understanding of instructions, follow-up care, medications, Prescriptions given X 2. 17:29 Patient left the ED. bm7 Signatures: Marbella Frederick FNP-C FNP-Vane Guzmán rg4 Shona Nguyen RN RN 7
[2022-05-21] MEDS ORDERED: dexAMETHasone 10 MG/ML VIAL ONE (17:23)
== END 2022-05-21 17:29 | disposition home or self-care (01) ==
LOC: ER 16:24
DX: M71.552 Other bursitis, not elsewhere classified, left hip (principal); F17.210 Nicotine dependence, cigarettes, uncomplicated
CPT/HCPCS: 96372; 99283; J1100

== ENCOUNTER 2024-04-11 13:08 | Emergency (ER) | payer OTHER ==
[2024-04-11 14:05] LABS: SARS-CoV-2 Antigen CONTROL BLUE LINE VIS/BG OK
[2024-04-11 14:07] LABS: SARS-CoV-2 Antigen Rapid Res Positive (Negative)
--- NOTE | 2024-04-11 14:15 | ER ---
Nurse's Notes [facility] Name: Andrew Vargas Age: 53 yrs Sex: Male : 1970 Arrival Date: 04/11/2024 Time: 13:08 Bed 13 Private MD: Diagnosis: SARS-associated coronavirus as the cause of diseases classified elsewhere Presentation: 04/11 13:18 Chief complaint: Patient states: has been sick for a few days, body aches, sweating , iw feels better now just wants a test for COVID / flu. Coronavirus screen: Client presents with at least one sign or symptom that may indicate coronavirus-19. Ebola Screen: No symptoms or risks identified at this time. Initial Sepsis Screen: Does the patient meet any 2 criteria? No. Patient's initial sepsis screen is negative. Does the patient have a suspected source of infection? No. Patient's initial sepsis screen is negative. Risk Assessment: Do you want to hurt yourself or someone else? Patient reports no desire to harm self or others. Onset of symptoms was April 08, 2024. 13:18 Method Of Arrival: Ambulatory iw 13:18 Acuity: NIKITA 4 iw Historical: - Allergies: 13:20 No Known Allergies; iw - PMHx: 13:20 Hypertension; iw - PSHx: 13:20 bowel obstruction; iw - Immunization history:: Adult Immunizations up to date. - Infectious Disease History:: Denies. - Social history:: Smoking status: Patient reports the use of cigarette tobacco products, smokes one-half pack cigarettes per day. Assessment: 14:02 Reassessment: Patient appears in no apparent distress at this time. Patient and/or db family updated on plan of care and expected duration. Pain level reassessed. Patient is alert, oriented x 3, equal unlabored respirations, skin warm/dry/pink. General: Appears in no apparent distress. comfortable, Behavior is calm, cooperative. Pain: Denies pain. Neuro: Level of Consciousness is awake, alert, obeys commands, Oriented to person, place, time, situation. Respiratory: Airway is patent Respiratory effort is even, unlabored, Respiratory pattern is regular, symmetrical. 14:33 Neuro: Level of Consciousness is awake, alert, obeys commands, Oriented to person, aa5 place, time, situation. Respiratory: Airway is patent Respiratory effort is even, unlabored, Respiratory pattern is regular, symmetrical. Derm: Skin is dry, Skin is normal, Skin temperature is warm. Vital Signs: 13:18 BP 124 / 75; Pulse 68; Resp 16; Pulse Ox 100% on R/A; Weight 88.45 kg; Height 5 ft. 9 iw in. ; 13:18 Body Mass Index 28.80 (88.45 kg, 175.26 cm) iw ED Course: 13:10 Patient arrived in ED. im 13:20 Triage completed. iw 13:21 Arm band placed on. iw 13:22 Tad Maria PA is PHCP. jr8 13:22 Jose Gu MD is Attending Physician. [facility] 13:25 April Mata, RN is Primary Nurse. db 14:33 No provider procedures requiring assistance completed. Patient did not have IV access aa5 during this emergency room visit. Administered Medications: No medications were administered Outcome: 14:14 Discharge ordered by MD. jr 14:33 Discharged to home ambulatory, aa5 14:33 Condition: stable 14:33 Discharge instructions given to patient, Instructed on discharge instructions, follow up and referral plans. Demonstrated understanding of instructions, follow-up care, 14:35 Patient left the ED. aa5 Signatures: Fauzia Marion RN RN Ana Peterson RN RN aa5 Tad Maria PA PA [facility] April Mata, RN RN db Tami Pires Corrections: (The following items were deleted from the chart) 13:21 13:18 BP 124 / 75; Pulse 68bpm; Resp 16bpm; Pulse Ox 100% RA; iw iw
--- NOTE | 2024-04-11 14:15 | EDPHYS ---
Physician Documentation [facility] Name: Andrew Vargas Age: 53 yrs Sex: Male : 1970 Arrival Date: 04/11/2024 Time: 13:08 Bed 13 Private MD: ED Physician Jose Gu HPI: 04/11 13:34 This 53 yrs old Black Male presents to ER via Ambulatory with complaints of COVID. jr8 13:34 Onset: The symptoms/episode began/occurred acutely, 4 day(s) ago. Associated signs and jr8 symptoms: Pertinent positives: cough, congestion, chills, sweats. . The patient has not experienced similar symptoms in the past. The patient has not recently seen a physician. Symptoms started earlier this week but has since resolved since yesterday. Missed work. Came to ED to make sure it was not covid or flu. Denies any symptoms at this time.. Historical: - Allergies: 13:20 No Known Allergies; iw - PMHx: 13:20 Hypertension; iw - PSHx: 13:20 bowel obstruction; iw - Immunization history:: Adult Immunizations up to date. - Infectious Disease History:: Denies. - Social history:: Smoking status: Patient reports the use of cigarette tobacco products, smokes one-half pack cigarettes per day. ROS: 13:34 Neck: Negative for injury, pain, and swelling, Cardiovascular: Negative for chest pain, jr8 palpitations, and edema, Abdomen/GI: Negative for abdominal pain, nausea, vomiting, diarrhea, and constipation, Back: Negative for injury and pain, MS/Extremity: Negative for injury and deformity, Skin: Negative for injury, rash, and discoloration, Neuro: Negative for headache, weakness, numbness, tingling, and seizure, 13:34 Constitutional: Positive for chills, sweating , 13:34 ENT: Positive for sinus congestion, 13:34 Respiratory: Positive for cough, Exam: 13:34 Constitutional: This is a well developed, well nourished patient who is awake, alert, jr8 and in no acute distress. ENT: Nares patent. No nasal discharge, no septal abnormalities noted. Tympanic membranes are normal and external auditory canals are clear. Oropharynx with no redness, swelling, or masses, exudates, or evidence of obstruction, uvula midline. Mucous membranes moist. Neck: Trachea midline, no thyromegaly or masses palpated, and no cervical lymphadenopathy. Supple, full range of motion without nuchal rigidity, or vertebral point tenderness. No Meningismus. Cardiovascular: Regular rate and rhythm with a normal S1 and S2. No gallops, murmurs, or rubs. Normal PMI, no JVD. No pulse deficits. Respiratory: Lungs have equal breath sounds bilaterally, clear to auscultation and percussion. No rales, rhonchi or wheezes noted. No increased work of breathing, no retractions or nasal flaring. Abdomen/GI: Soft, non-tender, with normal bowel sounds. No distension or tympany. No guarding or rebound. No evidence of tenderness throughout. Back: No spinal tenderness. No costovertebral tenderness. Full range of motion. Skin: Warm, dry with normal turgor. Normal color with no rashes, no lesions, and no evidence of cellulitis. MS/ Extremity: Pulses equal, no cyanosis. Neurovascular intact. Full, normal range of motion. Neuro: Awake and alert, GCS 15, oriented to person, place, time, and situation. Cranial nerves II-XII grossly intact. Motor strength 5/5 in all extremities. Sensory grossly intact. Cerebellar exam normal. Normal gait. Vital Signs: 13:18 BP 124 / 75; Pulse 68; Resp 16; Pulse Ox 100% on R/A; Weight 88.45 kg; Height 5 ft. 9 iw in. ; 13:18 Body Mass Index 28.80 (88.45 kg, 175.26 cm) iw MDM: 13:22 Patient medically screened. jr8 13:34 Differential diagnosis: viral Infection, pneumonia. jr8 14:12 Data reviewed: vital signs, nurses notes, lab test result(s). I considered the jr8 following discharge prescriptions or medication management in the emergency department I discussed and recommended Over The Counter medications, Antivirals: At this time, antivirals are not recommended, Pain Medications: At this time, prescription pain medications are not recommended. Counseling: I had a detailed discussion with the patient and/or guardian regarding the historical points, exam findings, and any diagnostic results supporting the discharge/admit diagnosis, lab results, the need for outpatient follow up, a family practitioner, to return to the emergency department if symptoms worsen or persist or if there are any questions or concerns that arise at home. 04/11 13:22 Order name: Influenza Screen (a \T\ B); Complete Time: 14:15 jr8 04/11 13:22 Order name: SARS RAPID; Complete Time: 14:15 jr8 04/11 14:15 Interpretation: Abnormal: SARS RESULT Positive. jr8 Administered Medications: No medications were administered Disposition Summary: 04/11/24 14:14 Discharge Ordered Notes: Location: Home jr8 Problem: new jr8 Symptoms: have improved jr8 Condition: Stable jr8 Diagnosis - SARS-associated coronavirus as the cause of diseases classified elsewhere jr8 Followup: jr8 - With: Private Physician - When: As needed - Reason: Recheck today's complaints, Continuance of care, Re-evaluation by your physician Discharge Instructions: - Discharge Summary Sheet jr8 - COVID-19 jr8 - 10 Things You Can Do to Manage Your COVID-19 Symptoms at Home - [facility] (03/10/2021) jr8 Forms: - Work release form aa5 - Medication Reconciliation Form jr8 - Antibiotic Education jr8 - Prescription Opioid Use jr8 - Patient Portal Instructions jr8 - Leadership Thank You Letter jr8 Signatures: Dispatcher [employer] Fauzia Nelson RN RN iw Roszak, Josh, PA PA jr8 Corrections: (The following items were deleted from the chart) 13:36 13:34 Eyes: Negative for injury, pain, redness, and discharge, ENT: Negative for jr8 injury, pain, and discharge, Neck: Negative for injury, pain, and swelling, Cardiovascular: Negative for chest pain, palpitations, and edema, Respiratory: Negative for shortness of breath, cough, wheezing, and pleuritic chest pain, Abdomen/GI: Negative for abdominal pain, nausea, vomiting, diarrhea, and constipation, Back: Negative for injury and pain, MS/Extremity: Negative for injury and deformity, Skin: Negative for injury, rash, and discoloration, Neuro: Negative for headache, weakness, numbness, tingling, and seizure, jr8
[2024-04-11 14:40] VITALS: BP 124/75; O2SAT 100
== END 2024-04-11 14:35 | disposition home or self-care (01) ==
LOC: ER 13:08
DX: U07.1 COVID-19 (principal); F17.210 Nicotine dependence, cigarettes, uncomplicated
CPT/HCPCS: 36415; 87804; 87811; 99282